=== PATIENT | male | born 1970 | race Caucasian/White ===

== ENCOUNTER 2019-08-23 07:36 | Outpatient (CLI) | payer BC ==
--- NOTE | 2019-08-23 09:20 | MRI ---
MRI BRAIN WITH AND WITHOUT IV CONTRAST: Date: 08/23/2019 HISTORY: Chronic migraines, headache. FINDINGS: There are foci of T2 prolongation in the periventricular white matter which could be due to chronic m igraine headaches, chronic small vessel ischemic disease, or demyelinating processes. No restricted d iffusion is seen. No evidence of infarct, hemorrhage, mass, midline shift, or abnormal extra-axial fl uid collections are seen. No postcontrast enhancement is noted. The ventricular size is normal and th e basilar cisterns are patent. The visualized paranasal sinuses and mastoid air cells are well aerate d. IMPRESSION: No evidence of acute intracranial process or mass. POS: OFF
== END 2019-08-23 07:37 | disposition home or self-care (01) ==
LOC: SCSMRI 07:36
PROVIDERS: ATTEND Family Medicine
DX: G44.89 Other headache syndrome (principal)
CPT/HCPCS: 70553